=== PATIENT | male | born 1955 | race Caucasian/White ===

== ENCOUNTER → 2017-01-15 | Outpatient (CLI) | payer OTHER ==
[~2017-01-15] MED LIST: ASPIRIN 81MG TA81 MG PO; ASPIRIN81 MG PO; ATROVENT15 ML NS; CLINDAMYCIN HC300 MG PO; DIOVAN160 MG PO; EDARBI40 MG PO; FLOMAX0.4 MG PO; GLYBURIDE AND M1 TA1 PO; GLYBURIDE AND M1 TA2 PO; JANUMET XR 10001 TE1 PO; JENTADUETO1 TAB PO; KEFLEX 500MG.500 MG PO; LIPITOR40 MG PO; LISINOPRIL 10MG10 MG PO; LIVALO2 MG PO; LOPRESSOR 25MG.25 MG PO; NATURAL FISH1200 MG PO; NITROSTAT0.4 MG SL; PERFOROMIS20 MCG/2 M IH; RANITIDINE HCL150 MG PO; SINGULAIR10 MG PO; VANCOMYCIN HC1000 MG IJ; VIMOVO 20 MG-501 TCP PO; VITAMIN C1000 M1 PO
--- NOTE | 2017-01-15 11:59 | RADIOLOGY REPORT PS360 ---
CHEST(2 VIEWS-NOT PORTABLE) ORDERING PHYSICIAN : Len Hopson MD PATIENT AGE: 61 years GENDER: Male INDICATION: COUGH Cough congestion. Nonproductive cough 6 weeks TECHNIQUE: 2 view chest COMPARISON: Portable upright chest 05/25/2013 FINDINGS Nothing definitely acute on today's chest film. But no focal pneumonia. Azygos lobe noted. Heart zayda and mediastinal structures satisfactory. Chest wall T-spine unremarkable. IMPRESSION: Lungs clear with nothing definitely acute Stable chest
== END ==
LOC: RAD 09:56
DX: R05 Cough (principal); I49.9 Cardiac arrhythmia, unspecified

== ENCOUNTER → 2017-01-23 | Outpatient (CLI) | payer OTHER ==
--- NOTE | 2017-01-23 16:01 | RADIOLOGY REPORT PS360 ---
PROCEDURE: 2-D M-mode and color Doppler study INDICATIONS FOR THE TEST: Chest pain COPD Heart Murmur Tobacco Smoking Palpitations Fatigue Syncope Edema HypertensionXDiabetes MellitusX Rheumatic Fever SOB OLSON Obesity HyperlipidemiaX Family History HD Additional History AF,CAD PATIENT INFORMATION HEIGHT: 74 WEIGHT:205 GENDER: Male B/P:120/70 2-D/M-MODE INTERPRETATION: 2-D MEASUREMENTS OBSERVED VALUES IN CMS Right Ventricular Dimension (RVDd) 2.8 Interventricular Septum (Thickness)(IVsd) 1.1 Left Ventricular Internal Dimensions(LVIDd) 5.3 Left Ventricular Posterior Wall (Thickness)(LVPWd) 1.2 Aortic Root 3.4 Aortic Cusp Separation 2.1 Left Atrial Dimensions (LAD) 4.0 2D 1. Left atrium is mildly enlarged, left ventricle is normal size, there is mild concentric left ventricular hypertrophy present, visually estimated ejection fraction 55% with no obvious regional wall motion abnormality. 2. The right atrium is normal size, right ventricle is mildly enlarged with normal contractility. 3. The aortic valve is minimally thickened and fibrosed consistent with aortic sclerosis, there is no aortic stenosis. 4. The mitral and tricuspid valve is structurally normal. 5. The pulmonic valve is not well visualized. 6. No significant pericardial effusion noted. DOPPLER INTERROGATION: Doppler interrogation of the aortic mitral and tricuspid valve reveals presence of mild mitral and tricuspid regurgitation, tricuspid regurgitant jet velocity insufficient for calculation of the right ventricular systolic pressure, grade 1 diastolic dysfunction seen without tissue Doppler evidence of raised left atrial pressure. CONCLUSION: 1. Mildly enlarged left atrium normal left ventricular size, mild concentric left ventricular hypertrophy, visually estimated to fraction 55% with no obvious regional wall motion abnormality, grade 1 diastolic dysfunction seen without tissue Doppler evidence of raised left atrial pressure. 2. Mild mitral and tricuspid regurgitation,tricuspid regurgitant jet velocity insufficient for calculation of the right ventricular systolic pressure. 3. No significant pericardial effusion noted.
== END ==
LOC: RT 01-22 08:00
DX: I48.91 Unspecified atrial fibrillation (principal)

== ENCOUNTER 2017-06-15 07:44 | Inpatient (IN) | payer OTHER ==
[~2017-06-15] VITALS: Ht 185.4 cm; Wt 87.3 kg
[2017-06-15] VITALS (43 sets, daily range): BP systolic 109–147; BP diastolic 54–85
[~2017-06-15 07:44] MED LIST changes: +C-10001000 MG PO; +KEFLEX500 M1 PO; -VITAMIN C1000 M1 PO
[2017-06-15] MEDS ORDERED: ALLOPURINOL300 M1 PO (07:55)
[2017-06-15] MEDS ORDERED: DILTIAZEM 180180 MG PO (07:55)
[2017-06-15] MEDS ORDERED: GLIPIZIDE 5MG TA5 MG PO (07:56)
[2017-06-15] MEDS ORDERED: FENOFIBRATE145 MG PO (07:57)
[2017-06-15] MEDS ORDERED: INVOKAMET1 TAB PO (07:57)
[2017-06-15] MEDS ORDERED: LIVALO4 MG PO (07:58)
[2017-06-15] MEDS ORDERED: LOSARTAN POTAS100 MG PO (07:58)
[2017-06-15] MEDS ORDERED: NAPROXEN500 M1 PO (07:59)
[2017-06-15] MEDS ORDERED: XARELTO20 MG PO (07:59)
[2017-06-15] MEDS ORDERED: OMEPRAZOLE20 MG PO (07:59)
[2017-06-15] MEDS ORDERED: BRILINTA90 M1 PO (08:00)
[2017-06-15 08:27] LABS: LYMPH % 20.6 % (10-50)
[2017-06-15 08:33] LABS: HEMOGLOBIN 6.4 g/dL (14.1-18.0)
[2017-06-15 08:33] LABS: STOOL OCCULT BLOOD POSITIVE (NEG)
[2017-06-15 08:46] LABS: BUN 65 mg/dL (7-18)
[2017-06-15 08:47] LABS: GFR (ESTIMATED) 47 ML/MIN (>60)
--- NOTE | 2017-06-15 08:52 | Emergency Room Report ---
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 PT DENIES CP. 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 N Clinical Suspician of Infection? N Mental Status: 1 - Regular (Normal Baseline) Sepsis Risk:Low Sepsis Risk Have you (or family members/close friends) recently traveled outside the [place]? N If Yes, where/when: Have you had exposure to infectious disease within the past month? TB? Other? Specify: 61 years old white male with multiple medical problems including diabetes and coronary artery disease. He underwent stenting in February 2017, he has been on aspirin berlinta and xalerto. After starting xalerto he underwent black stool and aspirin was stopped. It hasn't yesterday 06/14/17 at noon, he started feeling dizzy upon standing and almost passed out twice. He denies trauma. In the afternoon he noted black stool once. no black stool today. He was brought by the for evaluation, his vitals are stable. He denies abdominal pain vomiting or diarrhea. He denies chest pain palpitations shortness of air. He denies bleeding per orifices, hematemesis and coffee ground material. Source patient, RN notes reviewed, family Exam Limitations no limitations ALLERGIES Coded Allergies: No Known Allergies (03/06/17) Home Medications Reported Medications Azilsartan Medoxomil (Edarbi) 20 MG PO DAILY Allopurinol 150 MG FT DAILY #30 DILTIAZEM HCL (Tiazac) 180 MG PO DAILY Glipizide (Glipizide 5MG) 5 MG PO DAILY FENOFIBRATE NANOCRYSTALLIZED (Fenofibrate) 145 MG PO DAILY #30 CANAGLIFLOZIN/METFORMIN HCL (Invokamet 150-1,000 MG Tablet) 1 TAB PO BID #60 Pitavastatin Calcium (Livalo) 4 MG PO DAILY #30 Losartan Potassium (Losartan 100MG) 50 MG PO DAILY #30 Naproxen 500 MG PO DAILY #60 Omeprazole (Omeprazole 20MG) 20 MG PO DAILY #60 Rivaroxaban (Xarelto) 20 MG PO DAILY #30 Ticagrelor (Brilinta) 90 MG PO DAILY #60 OMEGA-3S/DHA/EPA/FISH OIL (Fish Oil 1,200 MG Softgel) 1,200 MG PO TID Ascorbic Acid (Vitamin C) 1,000 MG PO DAILY History Medical History General Angina: No DE: Yes Hypertension? Yes Hyperlipidemia? Yes CHF? No COPD? No Asthma? No Hernia? No CVA? No Seizures? No Diabetes? Yes Insulin Dependent: No Insulin Pump: No Home FSBS? No UTI? No Stones? No GB Disease: No Hepatitis? No Cataracts? No Glaucoma? No MRSA? No TB? No Cancer? No More? No Immunization Hx DT/Tetanus 1-4 YRS Flu Refused Pneumonia Refuses Surgical Hx Previous Surgery?N HEART STENT Family History Family Hx Diabetes Yes CAD No Hypertension Yes Hyperlipidemia Yes Cancer No TB No Social History Smoking Hx Smoker: Never Smoker Tobacco: No Alcohol Alcohol: Yes Review of Systems All Other Systems Reviewed and Negative Constitutional no symptoms reported, see HPI, weakness Eyes no symptoms reported ENT no symptoms reported. Respiratory no symptoms reported Cardiovascular no symptoms reported Gastrointestinal see HPI Genitourinary no symptoms reported. Musculoskeletal no symptoms reported Skin no symptoms reported Psychiatric/Neurological no symptoms reported Physical Exam Vital Signs Vital Signs Date Time Temp Pulse Resp B/P Pulse O2 O2 Flow FiO2 Ox Delivery Rate 06/15 0856 95 106/58 08 0856 81 127/66 08/ 0856 81 117/66 06/15 0844 81 20 127/66 94 06/15 0747 97.8 85 20 134/61 100 - WBC >12,000 or <4,000 or 10% bands? 2 or more SIRS Criteria Met? B/P:127/66 MAP:85 Creatinine >2.0? UA output<0.5ml/kg/hr for 2 hrs? Platelet count >100,000? Lactate >2.0mmol/1? INR >1.2 or PTT > than 60 sec? Evidence of Organ Dysfunction? Provider documented clinical suspician of infection? N Sepsis Criteria Count: 1 Sepsis Risk: Low Sepsis Risk General Appearance normal appearance, WD/WN, no apparent distress Eye Exam - bilateral eye normal exam, bilateral eye PERRL, bilateral eye EOMI Ear, Nose, Throat hearing grossly normal, normal ENT inspection Neck normal inspection, non-tender, supple, full range of motion Respiratory Status Yes: trachea midline, chest symmetrical, non tender chest. No: respiratory distress. Lung Sounds bilateral: normal breath sounds, lungs clear. Cardiovascular normal exam, regular rate/rhythm, no peripheral edema, no gallop, no JVD, no murmur, no rub, normal peripheral pulses Peripheral Pulses Pulses normal Yes Gastrointestinal normal bowel sounds, normal exam, non tender, soft, no organomegaly Back normal inspection, no CVA tenderness, no vertebral tenderness Extremities non-tender, normal range of motion, normal inspection Rectal good tone, painless exam, no masses , scant black stool. Nurse present during exam? 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 No Results/Orders Laboratory Tests 06/15/17 0830: Stool Occult Blood POSITIVE 06/15/17 0814: Sodium 138, Potassium 4.0, Chloride 105, Carbon Dioxide 21 L, BUN 65 H, Creatinine 1.5 H, Estimated Creat Clear 60, Estimated GFR (MDRD) 47, Glucose 281 H, Calcium 8.5, Total Bilirubin 0.2, AST 18, ALT 29, Alkaline Phosphatase 31 L, Creatine Kinase 98, CK-MB (CK-2) Rel Index 2.8, CK and CKMB Interp 2.7, Troponin I < 0.02, Total Protein 6.3 L, Albumin 3.3 L, Globulin 3.0, Albumin/ Globulin Ratio 1.1, WBC 4.8, RBC 2.60 L, Hgb 6.4 *L, Hct 21.2 *L, MCV 81.4 L, RDW 17.8 H, Plt Count 270, MPV 7.6, Gran % 74.0, Gran # 3.5, Lymphocytes % 20.6 , Monocytes % 3.6, Eosinophils % 1.2, Basophils % 0.5, Lymphocytes # 1.0, Monocytes # 0.2, Eosinophils # 0.1, Basophils # 0.0, PUBS MCHC 30.1 L, MCH 24.5 L Current Medication Orders Sig/Suraj Start time Last Medication Dose Route Stop Time Status Admin Famotidine 0 .STK-MED ONE 06/15 0846 DC IV Famotidine 20 MG ONCE ONE 06/15 0845 DC 06/15 IV 06/15 0846 0848 Pantoprazole Sodium 40 MG ONCE ONE 06/15 0845 DC 06/15 IV 06/15 0846 0848 Pantoprazole Sodium 0 .STK-MED ONE 06/15 0845 DC IV Sodium Chloride 1,000 ML .Q1H1M 06/15 0845 AC 06/15 IV 06/15 0945 0849 Sodium Chloride 10 ML PRN PRN 06/15 0845 AC IV 06/16 0840 Sodium Chloride 1,000 ML .Q1H1M 06/15 0845 AC 06/15 IV 06/15 0945 0849 Sodium Chloride 10 ML PRN PRN 06/15 0845 AC IV 06/16 0840 Sodium Chloride 10 ML ONCE ONE 06/15 0845 DC IV 06/15 0846 Sodium Chloride 8 ML ONCE ONE 06/15 0845 DC 06/15 IV 06/15 0846 0849 Sodium Chloride 2,000 ML .STK-MED ONE 06/15 0838 DC IV Sodium Chloride 10 ML PRN PRN 06/15 0815 AC IV 06/16 0802 Orders Procedure Date/time Status Decision to admit 06/15 0843 Active TYPE FOR CROSSMATCH 06/15 0841 Active ABD ACUTE(MUL VIEWS) 06/15 0822 Active ORTHOSTATIC B/P 06/15 0822 Active STOOL OCCULT BLOOD 06/15 0822 Complete ELECTROCARDIOGRAM REQUEST 06/15 08 Active CHEST(2 VIEWS-NOT PORTABLE) 06/15 0803 Active IV SALINE LOCK 06/15 08 Active SOFTWARE DEVELOPER MANAGER 06/15 0803 Active CBC WITH AUTO DIFF 06/15 0803 Complete CARDIAC ENZYMES 06/15 08 Complete CHEM 12 PROFILE 06/15 0803 Complete 12 LEAD EKG-GRACE (INITIAL) 06/15 0800 Active CM/EKG CM/EKG EKG rate, NSR, rhythm, no ectopy Comments Normal sinus rhythm 82/m Q-wave in the inferior leads baseline artifact no acute finding XRAY/CT/US XRAY/CT/US XRAY chest, abdomen XR interpretation by reviewed by me Xray Results no acute finding Departure Departure Time of Disposition 0849 Disposition Still a Patient Clinical Impression Primary Impression: Upper GI bleed Secondary Impressions: CAD (coronary artery disease), Coagulopathy, Diabetes 1.5 , managed as type 2 Condition STABLE Referrals Len Hopson MD (Family) Additional Instructions I discussed with the patient and his history examination and laboratory findings. It looks he has been having an upper gastrointestinal bleed for the past few months as. He is hemodynamically stable. 4 units of blood were ordered, the patient has no objection for blood transfusion. I informed his accountant Dr. Molina about his admission. i contacted dr. Hopson who agreed to admit and recommended blood transfusion. The patient wasa admitted in a hemodynamically stable conditon. Dr. Salazar Discharge Counseling Counseled pt/family regarding diagnosis, R/B of controlled subst., medications/RX, follow up needs ED Critical Care Critical Care No If Critical Care minutes are documented, the time involved in the performance of seperately reportable procedures was not counted toward critical care time documented. I directly delivered medical care to this critically ill and/or injured patient. Timely evaluation and treatment was necessary to address the significant organ system(s) dysfunction present in this patient. at 0915
[2017-06-15 10:03] LABS: ABO BLOOD TYPE A; RH BLOOD TYPE POSITIVE
--- NOTE | 2017-06-15 10:38 | HISTORY AND PHYSICAL REPORT ---
History and Physical ([facility]) Date of admission: 06/15/17 Chief complaint: Dizziness and Fatigue History: History of Present Illness: Mr. Ferreira is a 61yo WM with a hx of DM, HTN, CAD with WI and stents placed 2016, GERD, and gout who presented to the [facility] ED this morning with some dizziness and fatigue. According to the patient and his , he started experiencing some dizziness and fatigue yesterday morning while working outside. His symptoms progressed throughout the day to include weakness with any physical exertion. Pt reports that he also experienced one episode of dark stool yesterday. He notes that he was seen in the office of [facility] in February of this year for melena while taking Brilinta, ASA, Xarelto, and Naproxen. He was instructed to stop ASA and naproxen at that time and had no further recurrence of melena until yesterday. Pt and describe his symptoms overnight as much worse, which prompted ED visit. Upon arrival, pt H&H was found to be critically low with a positive stool occult blood. His EKG showed NSR with baseline artifact and no acute finding. Xray of abdomen and chest revealed no acute finding. The case was discussed with Dr. Hopson and the patient was admitted for transfusion and surgery consult. Past Medical History: Medical History: CAD? Yes Angina: No WI: Yes Hypertension? Yes Hyperlipidemia? Yes CHF? No DVT? No PE? No COPD? No Asthma? No Anemia? No GERD? Yes Gastric ulcers? No GI Bleed? No Hernia? No Thyroid Problems? No Hypothyroidism? No CVA? No Seizures? No Diabetes? Yes Insulin Dependent: No Insulin Pump: No Home FSBS? No Renal Insuffiency? No UTI? No Stones? No BPH? No GB Disease: No Nephritic Syndrome? No Asplenia? No Hepatitis? No Sickle Cell Disease? No Arthritis? No Migraines? No Cataracts? No Glaucoma? No MRSA? Yes HIV? No TB? No Anxiety? No Depression? No Cancer? No More? No Surgical history: Previous Surgery 1. HEART STENT x 2 - 02/14/17 - Dr. Molina Medications: Reported Medications Omeprazole (Omeprazole 20MG) 20 MG PO BID #60 Ticagrelor (Brilinta) 90 MG PO BID #60 TAB Allopurinol 150 MG FT DAILY #30 DILTIAZEM HCL (Tiazac) 180 MG PO DAILY Glipizide (Glipizide 5MG) 5 MG PO DAILY FENOFIBRATE NANOCRYSTALLIZED (Fenofibrate) 145 MG PO DAILY #30 CANAGLIFLOZIN/METFORMIN HCL (Invokamet 150-1,000 MG Tablet) 1 TAB PO BID #60 Pitavastatin Calcium (Livalo) 4 MG PO DAILY #30 Losartan Potassium (Losartan 100MG) 50 MG PO DAILY #30 Naproxen 500 MG PO DAILY #60 Rivaroxaban (Xarelto) 20 MG PO DAILY #30 OMEGA-3S/DHA/EPA/FISH OIL (Fish Oil 1,200 MG Softgel) 1,200 MG PO TID Ascorbic Acid (Vitamin C) 1,000 MG PO DAILY Discontinued Reported Medications Azilsartan Medoxomil (Edarbi) 20 MG PO DAILY Allergies: Coded Allergies: No Known Allergies (03/06/17) Family History: Family history: Postive for: DM, cancer. Social History: Smoking Hx Tobacco: No Smoker: Former Smoker (quit 1994) Type: Cigarettes Packs/day: < 1 Pack (20 pack year history) Are you exposed to second hand No Alcohol: Alcohol: Yes Hx of Drug Use: Drug Use? No Patien't marital status is: Patient's support system is: good Recent travel: none Review of Systems: Patient unresponsive? No Constitutional Positive for: fatigue, lethargy, weak, recent weight loss (20# intentional weight loss). No: chills. ENT No: ear ache, nasal congestion, sinus problems, sore throat. Cardiovascular Positive for: OLSON. No: PND, chest pain, edema, orthopnea, palpitations. Respiratory Positive for: dyspnea on exertion. No: PND, shortness of air, non-productive, pleuritic pain, productive cough (sputum), wheezing. GI Positive for: GERD, melena. No: abdominal pain, anorexia, constipation, dysphagia, hematemeis, hematochezia, nausea, rectal pain, vomitting. (male) No: frequency, hematuria. Skin No: diaphoresis, ecchymosis, rash. Neurological Positive for: dizziness, light headed, weakness. No: change in LOC, confusion, gait problem, headache, numbness, slurred speech, syncope. Immune/allergy No: itching. Eyes No: blurry vision, vision loss. Musculoskeletal No: extremity pain, extremity swelling, joint pain, joint swelling. Heme No: bleeding, bruising. Endocrine Positive for: heat. No: cold intolerance, polydipsia. Psychiatric No: confused, delusional, change in mental status. Physical Exam: Vital signs: 1ST Vital Signs Result Date Time Pulse Ox 100 06/15 747 B/P 134/61 06/15 747 Temp 97.8 06/15 747 Pulse 85 06/15 747 Resp 20 06/15 747 O2 Delivery ROOM AIR 06/15 1018 Exam: General appearance: alert, awake, no acute distress Eyes: anicteric, conjunctiva clear, PERRLA ENT: mucous membranes moist, pharynx normal, nares patent Neck: non-tender, supple, no LAD Cardiovascular: regular rate & rhythm, normal peripheral pulses Respiratory: CTAB A&P, good air movement ABD: non-distended, no rebound, soft, no tenderness, no guarding, no organomegaly, no palpable mass, bowel sounds present Extremities: moves all, no peripheral edema, no calf tenderness Skin: dry, intact, warm Neuro: alert, oriented, no focal deficit Lab data: Labs: Laboratory Tests 06/15/17 0900: Antibody Screen NEGATIVE, Miscellaneous Test POSITIVE 06/15/17 0830: Stool Occult Blood POSITIVE 06/15/17 0814: Sodium 138, Potassium 4.0, Chloride 105, Carbon Dioxide 21 L, BUN 65 H, Creatinine 1.5 H, Estimated Creat Clear 60, Estimated GFR (MDRD) 47, Glucose 281 H, Calcium 8.5, Total Bilirubin 0.2, AST 18, ALT 29, Alkaline Phosphatase 31 L, Creatine Kinase 98, CK-MB (CK-2) Rel Index 2.8, CK and CKMB Interp 2.7, Troponin I < 0.02, Total Protein 6.3 L, Albumin 3.3 L, Globulin 3.0, Albumin/ Globulin Ratio 1.1, WBC 4.8, RBC 2.60 L, Hgb 6.4 *L, Hct 21.2 *L, MCV 81.4 L, RDW 17.8 H, Plt Count 270, MPV 7.6, Gran % 74.0, Gran # 3.5, Lymphocytes % 20.6 , Monocytes % 3.6, Eosinophils % 1.2, Basophils % 0.5, Lymphocytes # 1.0, Monocytes # 0.2, Eosinophils # 0.1, Basophils # 0.0, PUBS MCHC 30.1 L, MCH 24.5 L Diagnosis(es): 1. Upper GI bleed Status: Acute 2. Anemia Status: Acute 3. Hypertension Status: Chronic 4. Diabetes 1.5, managed as type 2 Status: Chronic 5. CAD (coronary artery disease) Status: Chronic 6. GERD (gastroesophageal reflux disease) Status: Chronic Plan: Pt will be admitted and started on IVF and PPI with orders for transfusion of 4 units PRBC's. Surgery has been consulted, await input. (KEIKO CASTRO APRN) Diagnosis(es): 1. Upper GI bleed Status: Acute 2. Anemia Status: Acute 3. Hypertension Status: Chronic 4. CAD (coronary artery disease) Status: Chronic 5. GERD (gastroesophageal reflux disease) Status: Chronic 6. DM2 (diabetes mellitus, type 2) Status: Chronic Plan: Patient seen and agree with above note. Dr. Souza has been consulted for further evaluation of GI bleed. Transfusion ordered. Dr. Garcia will follow patient in my absence. (Len Hopson MD) at 1037 at 1251
--- NOTE | 2017-06-15 12:31 | CONSULT NOTE ---
Standard Demographics Patient Demo Date of Consultation: 06/15/17 Referring Provider: Len Hopson MD Reason for Consultation: Upper Gastrointestinal Bleed Allergies: Coded Allergies: No Known Allergies (03/06/17) History of Present Illness Chief Complaint: Weakness, black stool History of Present Illness: Patient is a 61-year-old white male with diabetes, hypertension, coronary disease with previous myocardial infarction. He had undergone coronary angioplasty with stent placement on 02/14/[address] Molina. He had previously been on aspirin, Naprosyn, Xarelto and Brilinta. Currently he is on the latter 2 medications for presumed drug eluting stents. He had a normal bowel movement 2 days ago. However, yesterday morning he developed very dark black stool. He had an additional bowel movement consistent with melena yesterday afternoon and then this morning. Yesterday he was outside in felt dizzy and weak. He ultimately presented to the emergency department this morning and evaluation revealed appreciable anemia with a hemoglobin of 6 and hematocrit of 21 percent. He was admitted for inpatient management. Patient states that he has been on omeprazole. Denies any known history of ulcer disease. Past Medical History Reports: CAD, hypertension, diabetes mellitus, GERD. Denies: peptic ulcer disease. Surgical History Previous Surgery?N HEART STENT Allergies Coded Allergies: No Known Allergies (03/06/17) Medications: Reported Medications OMEGA-3S/DHA/EPA/FISH OIL (Fish Oil 1,200 MG Softgel) 1,200 MG PO TID Ascorbic Acid (C-1000) 1,000 MG PO DAILY Allopurinol 150 MG PO DAILY #30 TAB Ticagrelor (Brilinta) 90 MG PO BID #60 TAB DILTIAZEM HCL (Tiazac) 180 MG PO DAILY Glipizide (Glipizide 5MG) 5 MG PO DAILY FENOFIBRATE NANOCRYSTALLIZED (Fenofibrate) 145 MG PO DAILY #30 CANAGLIFLOZIN/METFORMIN HCL (Invokamet 150-1,000 MG Tablet) 1 TAB PO BID #60 Pitavastatin Calcium (Livalo) 4 MG PO DAILY #30 Losartan Potassium (Losartan 100MG) 50 MG PO DAILY #30 Smoking Hx Tobacco: No Smoker: Former Smoker (quit 1994) Type: Cigarettes Packs/day: < 1 Pack (20 pack year history) Are you/the child exposed to second-hand smoke: No Alcohol Alcohol: Yes How much do you drink 1-2 Drinks Per Day For how long 2-5 Years When was your last drink 24-48 Hours Ago Hx of Drug Use Drug Use? No Review of Systems Constitutional Positive for: fatigue, lethargy, malaise, weak. Skin Positive for: bruising. Immune/allergy No: anaphalaxis. Eyes No: vision loss. ENT No: hearing loss. Respiratory Positive for: dyspnea on exertion. No: shortness of air, hemoptysis. Cardiovascular Positive for: OLSON. No: chest pain. GI Positive for: GERD, melena. No: abdomen. (male) No: flank pain. Musculoskeletal No: extremity swelling. Heme No: bruising. Endocrine Positive for: dyspnea. Neurological Positive for: dizziness, light headed, weakness. Physical Exam Exam General appearance no acute distress, alert Respiratory clear to auscultation Cardiovascular normal heart sounds Plan Plan: He has findings consistent with upper gastrointestinal blood loss. Hemoglobin is 6.4 and baseline is approximately 14. He has elevated BUN. Agree with transfusion which is pending. Tentatively plan for diagnostic upper endoscopy likely later this afternoon after some transfusion. at 1414 Plan Plan: He has findings consistent with upper gastrointestinal blood loss. Hemoglobin is 6.4 and baseline is approximately 14. He has elevated BUN. Agree with transfusion which is pending. Tentatively plan for diagnostic upper endoscopy likely later this afternoon after some transfusion. at 1230
--- NOTE | 2017-06-15 12:53 | RADIOLOGY REPORT PS360 ---
CHEST(2 VIEWS-NOT PORTABLE) COMPARISON: PA and lateral chest 01/15/2017 HISTORY: Is in the TECHNIQUE: PA and lateral chest FINDINGS: The lung mccurdy are well expanded and appear clear of infiltrate. The cardiac silhouette and vascularity are normal. Again noted is azygos lobe right apex a normal variation. The bony thorax is normal. IMPRESSION: Nonacute chest findings
--- NOTE | 2017-06-15 12:54 | RADIOLOGY REPORT PS360 ---
ABDOMEN-FLAT UPRIGHT COMPARISON: None HISTORY: Dizziness, black and tarry stools TECHNIQUE: KUB and upright abdomen FINDINGS: There is moderate scattered stool in ascending and descending colon. There is no significant small bowel gas. There are no abnormal soft tissue shadows and there is no free air. The bony pelvis appears intact, there is mild sclerosis of the SI joints and symphysis pubis. IMPRESSION: Essentially nondiagnostic abdomen
[2017-06-15 13:44] LABS: ANTIHUMAN GLOB CROSSMATCH COMPAT
[2017-06-15 13:53] LABS: ANTIHUMAN GLOB CROSSMATCH COMPAT
--- NOTE | 2017-06-15 16:20 | Operative Note ---
Endoscopy Report Date: 06/15/17 Preoperative diagnosis: Upper gastrointestinal bleeding Procedure Type of procedure: Esophagogastroduodenoscopy Indications: 61-year-old white male with previous coronary angioplasty with stenting on blood thinners who presented to the emergency department this morning with a 24-hour history of several episodes of melena and weakness with near syncopal episode. He presented to the emergency department this morning and was found to have appreciable anemia with hemoglobin of 6 and hematocrit of 21 percent. Baseline hemoglobin is 14. He was admitted for inpatient management and surgical consultation. Given the findings consistent with appreciable upper gastrointestinal blood loss plan was made for upper endoscopy for diagnostic and potential therapeutic purposes. Consent was obtained and patient was taken to endoscopy procedure room. He was positioned in a lateral decubitus position. Adequate intravenous sedation was achieved with anesthesia titration of propofol. Olympus endoscope was inserted via the oropharynx. Esophagus appeared normal. Stomach was cannulated and insufflated. Retroflexion revealed no evidence of any significant hiatal hernia. Gastric lumen was relatively unremarkable other than findings suggestive of minor gastritis. Pylorus was traversed. Within the duodenal bulb there appeared to be a punctate area consistent with a granulation tissue which would be suggestive of either Dielafoy type lesion or AVM. This had shown some recent bleeding and minor oozing. Irrigation was performed and there was no evidence of any ongoing bleeding. The endoscope was able to be advanced beyond this into the distal duodenum which appeared relatively unremarkable. Findings 1. duodenal Dielafoy lesion Follow-Up Follow-Up: Continue proton pump inhibitors. Transfused to appropriate level. Once stable may be able to discharge in 48-72 hours. Likely would recommend repeat upper endoscopy as an outpatient in several weeks. at 1620
--- NOTE | 2017-06-15 16:34 | Anesthesia Record ---
Anesthesia Record Part I Total IV fluids: 400 EBL (ml): 0 Urine Output: 0 B/P: 109/53 % SaO2: 95 Pulse: 80 Resps: 16 Temp: 99.1 Patient is: Drowsy, Stable Stable to PACU at: 1612 at 1634
--- NOTE | 2017-06-15 16:34 | Anesthesia Record ---
Anesthesia Record Part II Discharge time: 161 Destination: Second Floor PACU nurse assessment review? Yes Patient is: Stable Anesthesia complications? No at 1637
[2017-06-15 18:00] LABS: HEMOGLOBIN 7.4 g/dL (14.1-18.0)
[2017-06-15 18:20] LABS: LYMPH # 1.4 K/mm3 (0.7-4.5); LYMPH % 31.1 % (10-50)
[2017-06-15 18:21] LABS: HEMOGLOBIN 7.4 g/dL (14.1-18.0)
[2017-06-15 19:22] LABS: ANTIHUMAN GLOB CROSSMATCH COMPAT
[2017-06-15 20:06] LABS: ANTIHUMAN GLOB CROSSMATCH COMPAT
[2017-06-15 23:13] LABS: HEMOGLOBIN 8.6 g/dL (14.1-18.0)
[2017-06-16] VITALS (15 sets, daily range): BP systolic 122–163; BP diastolic 58–104
--- OUTSIDE RECORDS SUMMARY | 2017-06-16 05:14 | External Medical Summary Rpt ---
Author Author , NATHANIEL PETERSON Address Unknown Phone [email or web address] Purpose Continuity of Care Document - 06-15-2017 through 2016 Results Labs Lab Lab Date Result Refere Interp Status Commen Order Detail nces retati t Range on Blood product special preparation [Type] (06-15-2017 20:00) Blood BLOOD complet product 017 UNIT ed 20:00 RELEASE special prepara tion [Type] Blood product special preparation [Type] (06-15-2017 18:16) Blood BLOOD complet product 017 UNIT ed 18:16 RELEASE special prepara tion [Type] Blood product special preparation [Type] (06-15-2017 14:32) Blood BLOOD complet product 017 UNIT ed 14:32 RELEASE special prepara tion [Type] Blood product special preparation [Type] (06-15-2017 13:05) Blood BLOOD complet product 017 UNIT ed 13:05 RELEASE special prepara tion [Type] Blood type & Crossmatch panel in Blood (06-15-2017 09:00) Major COMPAT complet crossma 017 ed tch 09:00 [interp retatio n] Major COMPAT complet crossma 017 ed tch 09:00 [interp retatio n] by Immedia te spin Blood type & Crossmatch panel in Blood (06-15-2017 09:00) Blood NEGATIV NEGATIV complet group 017 E E ed antibod 09:00 y screen [Presen ce] in Serum or Plasma Rh POSITIV complet [Type] 017 E ed in 09:00 Blood ABO A complet group 017 ed [Type] 09:00 in Blood Hemoglobin.gastrointestinal [Presence] in Stool (06-15-2017 08:30) Hemoglo POSITIV NEG complet bin.gas 017 E ed trointe 08:30 stinal [Presen ce] in Stool --1st specime n
--- OUTSIDE RECORDS SUMMARY | 2017-06-16 05:14 | External Medical Summary Rpt ---
Author Author , NATHANIEL PETERSON Address Unknown Phone [email or web address] Purpose Continuity of Care Document - 06-15-2017 [...]
--- OUTSIDE RECORDS SUMMARY | 2017-06-16 05:14 | External Medical Summary Rpt ---
Demographics Preferred Language Spanish Marital Status Unknown Episcopalian Affiliation Unknown Race Unknown Ethnic Group Unknown Author Author , NATHANIEL PETERSON Address Unknown Phone Immunization Unable to retrieve immunization data due to connection failure with Immunization Registry. Please try again later.
--- OUTSIDE RECORDS SUMMARY | 2017-06-16 05:14 | External Medical Summary Rpt ---
Demographics Preferred Language Jordanian Marital Status Unknown Lutheran Affiliation Unknown Race Unknown Ethnic Group Unknown Author Author , NATHANIEL PETERSON Address Unknown Phone Immunization Unable to retrieve immunization data due to connection failure with Immunization Registry. Please try again later.
--- OUTSIDE RECORDS SUMMARY | 2017-06-16 05:14 | External Medical Summary Rpt ---
Author Author NICHOLAS Amaro, NOAHNIKHIL [employer] Address Unknown Phone Unavailable Results Blood product special preparation [Type] Observa Value Referen Units Interpr Notes Date tion ce etation Range Blood BLOOD No No No BLOOD Jun 4 product UNIT informa informa informa UNIT # 2017 RELEASE tion in in in : W0382 8:00 PM special source source source 17 data data data [id number] prepara RELEASE tion D [Type] 7 2000Spa rks,Maicol nA POSITIV E Blood product special preparation [Type] Observa Value Referen Units Interpr Notes Date ti ce etation Range Blood BLOOD No No No BLOOD Jun 4 product UNIT informa informa informa UNIT # 2017 RELEASE tion in in in : W0382 6:16 PM special source source source 17 data data data [id number] prepara RELEASE tion D [Type] 7 1816Spa rks,Maicol nA POSITIV E Basic metabolic panel in Blood Observa Value Referen Units Interpr Notes Date ti ce etation Range Urea 7 - 18 mg/dL High No Jun 15 nitrogen informati 2017 5:40 [Mass/vol on in PM ume] in source Serum or data Plasma Calcium 8.5 - mg/dL Low No Jun 15 [Mass/vol 10.1 informati 2017 5:40 ume] in on in PM Serum or source Plasma data Chloride 98 - 107 mmoL/L High No Jun 15 [Moles/vo informati 2017 5:40 lume] in on in PM Serum or source Plasma data Carbon 21.0 - mmoL/L Low No Jun 15 dioxide, 32.0 informati 2017 5:40 total on in PM [Moles/vo source lume] in data Serum or Plasma Creatinin 0.70 - mg/dL Normal No Jun 4 e 1.30 informati 2017 5:40 [Mass/vol on in PM ume] in source Serum or data Plasma Creatinin 50 - 200 ML/MIN Normal No Jun 15 e renal informati 2017 5:40 clearance on in PM source predicted data by Cockcroft -Gault formula Estimated >60 ML/MIN No REFERENCE Jun 15 informati RANGE: 2016 5:40 glomerula on in >60 PM r source ML/MIN/1. filtratio data 73 SQUARE n rate METERSIf (GF this patient is -A merican, then multiply theresult by 1.210. Glucose 74 - 106 mg/dL High No Jun 15 [Mass/vol 2016 5:40 ume] in on in PM Serum or source Plasma data Potassium 3.5 - 5.1 mmoL/L Normal No Jun 15 inform2016 5:40 [Moles/vo on in PM lume] in source Serum or data Plasma Sodium 136 - 145 mmoL/L Normal No Jun 15 [Moles/vo 2016 5:40 lume] in on in PM Serum or source Plasma data CBC W Auto Differential panel in Blood Observa Value Referen Units Interpr Notes Date tion ce etation Range Basophils 0 - 0.2 K/MM3 Normal No Jun 152016 5:40 [#/volume on in PM ] in source Blood by data Automated count Basophils 0.1 - 2.0 % Normal No Jun 15 informati 2016 5:40 leukocyte on in PM s in source Blood by data Automated count Eosinophi 0.0 - 0.4 K/mm3 Normal No Jun 15 ls inform2016 5:40 [#/volume on in PM ] in source Blood by data Automated count Eosinophi 0.1 - % Normal No Jun 15 ls/100 12.0 inform2016 5:40 leukocyte on in PM s in source Blood by data Automated count Granulocy 1.3 - 8.0 K/mm3 Normal No Jun 15 amber informati 2016 5:40 [#/volume on in PM ] in source Blood by data Automated count Granulocy 37.0 - % Normal No Jun 15 amber/100 80.0 informati 2016 5:40 leukocyte on in PM s in source Blood by data Automated count Hematocri 42.0 - % Low alert Jun 15 t [Volume 52.0 2016 5:40 CRITICAL PM Fraction] RESULTS of Blood [facility] [place] [facility] [place] 1821 Elbert,Rich fernie Hemoglobi 14.1 - g/dL Low alert Jun 15 n 18.0 2016 5:40 [Mass/vol CRITICAL PM ume] in RESULTS Blood [place] [facility] [place]171820 ElbertDanial fernie Lymphocyt 0.7 - 4.5 K/mm3 Normal No Jun 15 es informati 2016 5:40 [#/volume on in PM ] in source Unspecifi data ed specimen by Automated count Lymphocyt 10 - 50 % Normal No Jun 15 es informati 2016 5:40 [#/volume on in PM ] in source Unspecifi data ed specimen by Automated count Erythrocy 27 - 31.2 pg Low No Jun 15 te mean informati 2016 5:40 corpuscul on in PM ar source hemoglobi data n [Entitic mass] Erythrocy 31.8 - g/dl Low No Jun 15 te mean 35.4 informati 2016 5:40 corpuscul on in PM ar source hemoglobi data n concentra tion [Mass/vol ume] by Automated count Erythrocy 82.2 - fl Normal No Jun 15 te mean 97.8 informati 2016 5:40 corpuscul on in PM ar volume source [Entitic data volume] by Automated count Monocytes 0.1 - 1.0 K/mm3 Normal No Jun 15 informati 2016 5:40 [#/volume on in PM ] in source Blood by data Automated count Monocytes 1.7 - 9.3 % Normal No Jun 15 /100 informati 2016 5:40 leukocyte on in PM s in source Blood by data Automated count Platelet 7.4 - fl Normal No Jun 15 mean 10.4 informati 2016 5:40 volume on in PM [Entitic source volume] data in Blood by Automated count Platelets 142 - 424 K/mm3 Normal No Jun 15 informati 2016 5:40 [#/volume on in PM ] in source Blood data Erythrocy 4.6 - 6.2 M/mm3 Low No Jun 15 amber informati 2017 5:40 [#/volume on in PM ] in source Amniotic data fluid Erythrocy 11.5 - % Normal No Jun 15 te 17.5 informati 2016 5:40 distribut on in PM ion width source [Entitic data volume] by Automated count Leukocyte 4.8 - K/MM3 Low No Jun 15 s 10.8 informati 2017 5:40 [#/volume on in PM ] in source Blood data Hemoglobin & Hematocrit panel in Blood Observa Value Referen Units Interpr Notes Date tion ce etation Range Hematocri 42.0 - % Low alert Jun 15 t [Volume 52.0 2016 5:40 CRITICAL PM Fraction] RESULTS of Blood RESU LTS CALLED TO: [facility] 06/15/17 1759 Elbert,Rich fernie Hemoglobi 14.1 - g/dL Low alert Jun 15 n 18.0 2016 5:40 [Mass/vol CRITICAL PM ume] in RESULTS Blood RESU LTS CALLED TO: [facility] 06/15/17 1758 Elbert,Danial fernie Blood product special preparation [Type] Observa Value Referen Units Interpr Notes Date ti ce etation Range Blood BLOOD No No No BLOOD Jun 15 product UNIT informa informa informa UNIT # 2017 RELEASE tion in tion in in : W0382 2:32 PM special source source source 17 data data data [id number] prepara RELEASE tion D [Type] Laurie Dickinson aA POSITIV E Blood product special preparation [Type] Observa Value Referen Units Interpr Notes Date ti ce etation Range Blood BLOOD No No No BLOOD Jun 15 product UNIT informa informa informa UNIT # 2017 RELEASE tion in tion in ti in : W0382 1:05 PM special source source source 17 data data data [id number] prepara RELEASE tion D [Type] Laurie Dickinson aA POSITIV E Blood type & Crossmatch panel in Blood Observa Value Referen Units Interpr Notes Date tion ce etation Range Hold? Y Major COMPAT No No No No Jun 15 crossma informa informa informa informa 2017 tch tion in tion in tion in tion in 9:00 AM [interp source source source source retatio data data data data n] Major COMPAT No No No No Jun 15 crossma informa informa informa informa 2017 tch tion in tion in tion in tion in 9:00 AM [interp source source source source retatio data data data data n] by Immedia te spin Blood type & Crossmatch panel in Blood Observa Value Referen Units Interpr Notes Date tion ce etation Range Hold? Y Major COMPAT No No No No Jun 15 crossma informa informa informa informa 2017 tch tion in tion in tion in tion in 9:00 AM [interp source source source source retatio data data data data n] Major COMPAT No No No No Jun 15 crossma informa informa informa informa 2017 tch tion in tion in tion in tion in 9:00 AM [interp source source source source retatio data data data data n] by Immedia te spin Blood type & Crossmatch panel in Blood Observa Value Referen Units Interpr Notes Date tion ce etation Range SPECIMEN COMMENT: TRANSFUSE 2 NOW Hold? N Transfuse now? 2 UNITS NOW Major COMPAT No No No No Jun 15 crossma informa informa informa informa 2017 tch tion in tion in tion in tion in 9:00 AM [interp source source source source retatio data data data data n] Major COMPAT No No No No Jun 15 crossma informa informa informa informa 2017 tch tion in tion in tion in tion in 9:00 AM [interp source source source source retatio data data data data n] by Immedia te spin Blood type & Crossmatch panel in Blood Observa Value Referen Units Interpr Notes Date tion ce etation Range SPECIMEN COMMENT: TRANSFUSE 2 NOW Hold? N Transfuse now? 2 UNITS NOW Major COMPAT No No No No Jun 15 crossma informa informa informa informa 2017 tch tion in tion in tion in tion in 9:00 AM [interp source source source source retatio data data data data n] Major COMPAT No No No No Jun 15 crossma informa informa informa informa 2017 tch tion in tion in tion in tion in 9:00 AM [interp source source source source retatio data data data data n] by Immedia te spin Blood type & Crossmatch panel in Blood Observa Value Referen Units Interpr Notes Date ti ce etation Range SPECIMEN COMMENT: TRANSFUSE 2 NOW Hold? N Transfuse now? 2 UNITS NOW Major COMPAT No No No No Jun 15 crossma informa informa informa informa 2017 tch tion in tion in tion in tion in 9:00 AM [interp source source source source retatio data data data data n] Major COMPAT No No No No Jun 15 crossma informa informa informa informa 2017 tch tion in tion in tion in tion in 9:00 AM [interp source source source source retatio data data data data n] by Immedia te spin Blood type & Crossmatch panel in Blood Observa Value Referen Units Interpr Notes Date ti ce etation Range SPECIMEN COMMENT: TRANSFUSE 2 NOW Hold? N Transfuse now? 2 UNITS NOW Major COMPAT No No No No Jun 15 crossma informa informa informa informa 2017 tch tion in tion in tion in ti in 9:00 AM [interp source source source source retatio data data data data n] Major COMPAT No No No No Jun 15 crossma informa informa informa informa 2017 tch tion in tion in tion in tion in 9:00 AM [interp source source source source retatio data data data data n] by Immedia te spin Blood type & Crossmatch panel in Blood Observa Value Referen Units Interpr Notes Date ce etation Range Blood NEGATIV NEGATIV No No No Jun 15 group E E informa informa informa 2017 antibod tion in tion in tion in 9:00 AM y source source source screen data data data [Presen ce] in Serum or Plasma Rh POSITIV No No No No Jun 15 [Type] E informa informa informa informa 2017 in tion in tion in tion in tion in 9:00 AM Blood source source source source data data data data ABO A No No No No Jun 15 group informa informa informa informa 2017 [Type] tion in tion in tion in tion in 9:00 AM in source source source source Blood data data data data Hemoglobin.gastrointestinal [Presence] in Stool Observa Value Referen Units Interpr Notes Date tion ce etation Range Hemoglo POSITIV NEG No No No Jun 15 bin.gas E informa informa informa 2016 trointe tion in tion in tion in 8:30 AM stinal source source source [Presen data data data ce] in Stool --1st specime n CBC W Auto Differential panel in Blood Observa Value Referen Units Interpr Notes Date ti ce etation Range Basophils 0 - 0.2 K/MM3 Normal No Jun 15 informati 2016 8:14 [#/volume on in AM ] in source Blood by data Automated count Basophils 0.1 - 2.0 % Normal No Jun 15 informati 2016 8:14 leukocyte on in AM s in source Blood by data Automated count Eosinophi 0.0 - 0.4 K/mm3 Normal No Jun 15 ls informati 2016 8:14 [#/volume on in AM ] in source Blood by data Automated count Eosinophi 0.1 - % Normal No Jun 15 ls/100 12.0 informati 2016 8:14 leukocyte on in AM s in source Blood by data Automated count Granulocy 1.3 - 8.0 K/mm3 Normal No Jun 15 amber informati 2016 8:14 [#/volume on in AM ] in source Blood by data Automated count Granulocy 37.0 - % Normal No Jun 15 amber/100 80.0 informati 2016 8:14 leukocyte on in AM s in source Blood by data Automated count Hematocri 42.0 - % Low alert Jun 15 t [Volume 52.0 2016 8:14 CRITICAL AM Fraction] RESULTS of Blood RESU LTS CALLED TO: [facility] 06/15/17 0832 Elbert,Rich fernie Hemoglobi 14.1 - g/dL Low alert Jun 15 n 18.0 2016 8:14 [Mass/vol CRITICAL AM ume] in RESULTS Blood RESU LTS CALLED TO: [facility] 06/15/17 0832 Elbert,Rich fernie Lymphocyt 0.7 - 4.5 K/mm3 Normal No Jun 15 es informati 2017 8:14 [#/volume on in AM ] in source Unspecifi data ed specimen by Automated count Lymphocyt 10 - 50 % Normal No Jun 15 es informati 2017 8:14 [#/volume on in AM ] in source Unspecifi data ed specimen by Automated count Erythrocy 27 - 31.2 pg Low No Jun 15 te mean informati 2017 8:14 corpuscul on in AM ar source hemoglobi data n [Entitic mass] Erythrocy 31.8 - g/dl Low No Jun 15 te mean 35.4 informati 2017 8:14 corpuscul on in AM ar source hemoglobi data n concentra tion [Mass/vol ume] by Automated count Erythrocy 82.2 - fl Low No Jun 15 te mean 97.8 informati 2017 8:14 corpuscul on in AM ar volume source [Entitic data volume] by Automated count Monocytes 0.1 - 1.0 K/mm3 Normal No Jun 15 informati 2017 8:14 [#/volume on in AM ] in source Blood by data Automated count Monocytes 1.7 - 9.3 % Normal No Jun 4 /100 informati 2017 8:14 leukocyte on in AM s in source Blood by data Automated count Platelet 7.4 - fl Normal No Jun 15 mean 10.4 informati 2017 8:14 volume on in AM [Entitic source volume] data in Blood by Automated count Platelets 142 - 424 K/mm3 Normal No Jun 15 informati 2017 8:14 [#/volume on in AM ] in source Blood data Erythrocy 4.6 - 6.2 M/mm3 Low No Jun 15 amber informati 2017 8:14 [#/volume on in AM ] in source Amniotic data fluid Erythrocy 11.5 - % High No Jun 15 te 17.5 informati 2017 8:14 distribut on in AM ion width source [Entitic data volume] by Automated count Leukocyte 4.8 - K/MM3 Normal No Jun 15 s 10.8 informati 2016 8:14 [#/volume on in AM ] in source Blood data
--- OUTSIDE RECORDS SUMMARY | 2017-06-16 05:14 | External Medical Summary Rpt ---
Author Author , NATHANIEL PETERSON Address Unknown Phone [email or web address] Purpose Continuity of Care Document - 06-15-2017 [...]
--- OUTSIDE RECORDS SUMMARY | 2017-06-16 05:14 | External Medical Summary Rpt ---
Demographics Preferred Language Danish Marital Status Unknown Advent Affiliation Unknown Race Unknown Ethnic Group Unknown Author Author , NATHANIEL PETERSON Address Unknown Phone Immunization Unable to retrieve immunization data due to connection failure with Immunization Registry. Please try again later.
--- OUTSIDE RECORDS SUMMARY | 2017-06-16 05:14 | External Medical Summary Rpt ---
Demographics Preferred Language Puerto Rican Marital Status Unknown Yazidism Affiliation Unknown Race Unknown Ethnic Group Unknown Author Author , NATHANIEL PETERSON Address Unknown Phone Immunization Unable to retrieve immunization data due to connection failure with Immunization Registry. Please try again later.
--- OUTSIDE RECORDS SUMMARY | 2017-06-16 05:14 | External Medical Summary Rpt ---
Author Author , NATHANIEL PETERSON Address Unknown Phone [email or web address] Purpose Continuity of Care Document - 06-15-2017 [...]
--- OUTSIDE RECORDS SUMMARY | 2017-06-16 05:14 | External Medical Summary Rpt ---
[...] source source source 17 data data data [id number] prepara RELEASE tion D [Type] 7 2000Spa rks,Maicol nA POSITIV E Blood product special preparation [Type] Observa Value Referen Units Interpr Notes Date ti ce etation Range Blood BLOOD No No No BLOOD Jun 4 product UNIT informa informa informa UNIT # 2017 RELEASE tion in in in : W0382 6:16 PM special source source source 17 data data data [id number] prepara RELEASE tion D [Type] 7 1816Spa [...] PM Fraction] RESULTS of Blood [facility] CALLED TO: [facility] [place] 06/15/17 1821 Elbert,Rich fernie Hemoglobi 14.1 - g/dL Low alert Jun 15 n 18.0 2016 5:40 [Mass/vol CRITICAL PM ume] in RESULTS Blood RESU LTS CALLED TO: [facility] [place] 06/15/171820 ElbertDanial fernie Lymphocyt 0.7 - 4.5 [...] source source source 17 data data data [id number] prepara RELEASE tion D [Type] Laurie Dickinson aA POSITIV E Blood product special preparation [Type] Observa Value Referen Units Interpr Notes Date ti ce etation Range Blood BLOOD No No No BLOOD Jun 15 product UNIT informa informa informa UNIT # 2017 RELEASE tion in tion in ti in : W0382 1:05 PM special source source source 17 data data data [id number] prepara RELEASE tion D [Type] Laurie Dickinson [...]
--- OUTSIDE RECORDS SUMMARY | 2017-06-16 05:15 | External Medical Summary Rpt ---
[...] source source source 17 data data data [id number] prepara RELEASE tion D [Type] 7 2000Spa rks,Maicol nA POSITIV E Blood product special preparation [Type] Observa Value Referen Units Interpr Notes Date ti ce etation Range Blood BLOOD No No No BLOOD Jun 4 product UNIT informa informa informa UNIT # 2017 RELEASE tion in in in : W0382 6:16 PM special source source source 17 data data data [id number] prepara RELEASE tion D [Type] 7 1816Spa [...] 5:40 CRITICAL PM Fraction] RESULTS of Blood [facility] CALLED TO: [facility] [place]/15/17 1821 Elbert,Rich fernie Hemoglobi 14.1 - g/dL Low alert Jun 15 n 18.0 2016 5:40 [Mass/vol CRITICAL PM ume] in RESULTS Blood RESU LTS CALLED TO: [facility] [place] 06/15/171820 ElbertDanial fernie Lymphocyt 0.7 - 4.5 [...] source source source 17 data data data [id number] prepara RELEASE tion D [Type] Laurie Dickinson aA POSITIV E Blood product special preparation [Type] Observa Value Referen Units Interpr Notes Date ti ce etation Range Blood BLOOD No No No BLOOD Jun 15 product UNIT informa informa informa UNIT # 2017 RELEASE tion in tion in ti in : W0382 1:05 PM special source source source 17 data data data [id number] prepara RELEASE tion D [Type] Laurie Dickinson [...]
--- OUTSIDE RECORDS SUMMARY | 2017-06-16 05:15 | External Medical Summary Rpt ---
[...] source source source 17 data data data [id number] prepara RELEASE tion D [Type] 7 2000Spa rks,Maicol nA POSITIV E Blood product special preparation [Type] Observa Value Referen Units Interpr Notes Date ti ce etation Range Blood BLOOD No No No BLOOD Jun 4 product UNIT informa informa informa UNIT # 2017 RELEASE tion in in in : W0382 6:16 PM special source source source 17 data data data [id number] prepara RELEASE tion D [Type] 7 1816Spa [...] 5:40 CRITICAL PM Fraction] RESULTS of Blood [facility] [place] [place] [facility] [place] 1821 Elbert,Rich fernie Hemoglobi 14.1 - g/dL Low alert Jun 15 n 18.0 2016 5:40 [Mass/vol CRITICAL PM ume] in RESULTS Blood [place] [facility] [place]171820 ElbertDanial fernie Lymphocyt 0.7 - 4.5 [...] source source source 17 data data data [id number] prepara RELEASE tion D [Type] Laurie Dickinson aA POSITIV E Blood product special preparation [Type] Observa Value Referen Units Interpr Notes Date ti ce etation Range Blood BLOOD No No No BLOOD Jun 15 product UNIT informa informa informa UNIT # 2017 RELEASE tion in tion in ti in : W0382 1:05 PM special source source source 17 data data data [id number] prepara RELEASE tion D [Type] Laurie Dickinson [...] RESU LTS CALLED TO: [facility] 06/15/17 0832 Elbret,Rich fernie Lymphocyt 0.7 - 4.5 K/mm3 Normal [...]
--- NOTE | 2017-06-16 08:34 | ACUTE CARE PROGRESS NOTE (QUA) ---
Progress Notes Subjective Date 06/16/17 Time 0831 Note Rested well last night. No c/o abdominal pain or nausea. Tolerating diet. Has received 4 units of blood thus far. Objective Findings Laboratory Tests 06/15/17 2300: Hgb 8.6 L, Hct 26.4 L 06/15/17 2000: Misc Test Units BLOOD UNIT RELEASE 06/15/17 1816: Misc Test Units BLOOD UNIT RELEASE 06/15/17 1740: Hgb 7.4 *L, Hct 23.6 *L 06/15/17 1740: Sodium 142, Potassium 3.9, Chloride 110 H, Carbon Dioxide 19 L, BUN 44 H, Creatinine 1.3, Estimated Creat Clear 72, Estimated GFR (MDRD) 56, Glucose 206 H, Calcium 7.7 L, WBC 4.5 L, RBC 2.81 L, Hgb 7.4 *L, Hct 23.6 *L, MCV 84.0, RDW 17.4, Plt Count 227, MPV 8.1, Gran % 63.6, Gran # 2.9, Lymphocytes % 31.1, Monocytes % 4.2, Eosinophils % 0.6, Basophils % 0.4, Lymphocytes # 1.4, Monocytes # 0.2, Eosinophils # 0.0, Basophils # 0.0, PUBS MCHC 31.3 L, MCH 26.3 L 06/15/17 1432: Misc Test Units BLOOD UNIT RELEASE 06/15/17 1305: Misc Test Units BLOOD UNIT RELEASE 06/15/17 0900: Antibody Screen NEGATIVE, Miscellaneous Test POSITIVE Last VS-Temp:98.1 B/P: 125/81 Pulse:90 Resp:18 SaO2:95 ROOM AIR Last weight lbs: 192 oz: 9 K.346 Method: Bed Scales Exam General appearance: alert, no acute distress Respiratory: clear to auscultation ABD: soft, no tenderness Extremities: no peripheral edema Skin: normal color Assessment/Plan Problem List 1. Upper GI bleed Status: Acute 2. Anemia Status: Acute 3. Hypertension Status: Chronic 4. CAD (coronary artery disease) Status: Chronic 5. GERD (gastroesophageal reflux disease) Status: Chronic 6. DM2 (diabetes mellitus, type 2) Status: Chronic Patient condition Stable Plan: AM labs pending. Continue IV Protonix. Further recommendations per Dr. Souza. This inpt stay is expected to cross 2 MNs from start of care Yes at 0813
[2017-06-16 08:52] LABS: HEMOGLOBIN 9.1 g/dL (14.1-18.0); LYMPH # 1.1 K/mm3 (0.7-4.5); LYMPH % 21.6 % (10-50)
--- NOTE | 2017-06-16 15:27 | PHARMACY CLINIC NOTE ---
Patient Demographics Patient Demographics Admission date: 06/15/17 Date: 06/16/17 Time: 1526 Allergies Coded Allergies: No Known Allergies (03/06/17) HEIGHT- FT: 6 IN: 1.00 K.346 VTE General Information Labs: Laboratory Tests 06/16 06/15 06/15 06/15 0825 2300 1740 1740 Hematology Hgb (14.1 - 18.0 g/dL) 9.1 L 8.6 L 7.4 *L 7.4 *L Hct (42.0 - 52.0 %) 27.9 L 26.4 L 23.6 *L 23.6 *L Plt Count (142 - 424 K/mm3) 228 227 Disclaimer The following section includes nursing documentation that has been pulled in for pharmacy review. Patient's VTE score: 1 Patient's VTE Risk: VERY LOW RISK Clinical trial participant? No VTE prophylaxis NQF [id number] VTE prophylaxis ordered? Yes Type of prophylaxis/treatment: MARELY at 1524
[2017-06-17] VITALS (21 sets, daily range): BP systolic 108–143; BP diastolic 58–94
[2017-06-17 06:28] LABS: HEMOGLOBIN 9.2 g/dL (14.1-18.0)
--- NOTE | 2017-06-17 08:34 | ACUTE CARE PROGRESS NOTE (QUA) ---
See Addendum Progress Notes Subjective Date 06/17/17 Time 0830 Note Slept well and feels good this morning. No abdominal pain or nausea. Tolerating advance diet Objective Findings Laboratory Tests 06/17/17 0540: Hgb 9.2 L, Hct 28.1 L 06/16/17 1448: Misc Test Units BLOOD UNIT RELEASE Last VS-Temp:98.3 B/P: 116/69 Pulse:86 Resp:18 SaO2:98 ROOM AIR Last weight lbs: 192 oz: 9 K.346 Method: Bed Scales Exam General appearance: alert, awake Cardiovascular: regular rate & rhythm Assessment/Plan Problem List 1. Upper GI bleed Status: Acute 2. Anemia Status: Acute 3. Hypertension Status: Chronic 4. CAD (coronary artery disease) Status: Chronic 5. GERD (gastroesophageal reflux disease) Status: Chronic 6. DM2 (diabetes mellitus, type 2) Status: Chronic Plan: H&H did not increase much after blood yesterday. No signs of recurring bleeding. WOuld like to get H&H above 10. Will tranfuse 2 units today. Continue IV Protonix per surgery recommendations. Resume diabetic meds and sliding scale insulin. This inpt stay is expected to cross 2 MNs from start of care Yes at 0804
[2017-06-17 13:22] LABS: ANTIHUMAN GLOB CROSSMATCH COMPAT
[2017-06-17 17:38] LABS: HEMOGLOBIN 10.9 g/dL (14.1-18.0)
[2017-06-17] MEDS ORDERED: PROTONIX 40MG T40 MG PO (18:01)
--- NOTE | 2017-06-21 09:11 | DISCHARGE SUMMARY STANDARD ---
Discharge Summary (FCA2) Date of admission: 06/15/17 Date of discharge: 06/17/17 Problem List: 1. Upper GI bleed 2. Anemia 3. Hypertension 4. CAD (coronary artery disease) 5. GERD (gastroesophageal reflux disease) 6. DM2 (diabetes mellitus, type 2) History of present illness: Mr. Ferreira was a 61yo WM with a hx of DM, HTN, CAD with NM and stents placed 2016, GERD, and gout who presented to the [facility] ED with some dizziness and fatigue. According to the patient and his , he had started experiencing some dizziness and fatigue the previous morning while working outside. His symptoms had progressed throughout the day to include weakness with any physical exertion. Pt reported that he had also experienced one episode of dark stool. He noted that he was seen in the office of A in February of current year for melena while taking Brilinta, ASA, Xarelto, and Naproxen. He was instructed to stop ASA and naproxen at that time and had no further recurrence of melena. Pt and described his symptoms overnight as much worse, which prompted ED visit. Upon arrival, pt H&H was found to be critically low with a positive stool occult blood. His EKG showed NSR with baseline artifact and no acute finding. Xray of abdomen and chest revealed no acute finding. The case was discussed with Dr. Hopson and the patient was admitted for transfusion and surgery consult. Exam on admission: General appearance: alert, awake, no acute distress Eyes: anicteric, conjunctiva clear, PERRLA ENT: mucous membranes moist, pharynx normal, nares patent Neck: non-tender, supple, no LAD Cardiovascular: regular rate & rhythm, normal peripheral pulses Respiratory: CTAB A&P, good air movement ABD: non-distended, no rebound, soft, no tenderness, no guarding, no organomegaly, no palpable mass, bowel sounds present Extremities: moves all, no peripheral edema, no calf tenderness Skin: dry, intact, warm Neuro: alert, oriented, no focal deficit Hospital Course: Patient was admitted and received 4 units of PRBC's. He was started on IV PPI. 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 The following day , the patient was feeling better and tolerating diet and activity. His H&H had improved to 9.1/.9 and he received another unit of PRBC's. By the morning of , the patient was eager to go home although his H&H had improved only minimally. He received an additional 2 units of PRBC's and by the evening, his H &H was felt to be adequate. He was discharged home with instruction to followup with Dr. Hopson the following day for repeat CBC. Discharge medications: Stop taking the following medications: Naproxen (Naproxen) 500 MG TABLET ORAL TWICE A DAY Qty = 60 Omeprazole (Omeprazole 20MG) 20 MG CAPSULE. ORAL TWICE A DAY Qty = 60 Rivaroxaban (Xarelto) 20 MG TABLET ORAL DAILY Qty = 30 Continue taking these medications: OMEGA-3S/DHA/EPA/FISH OIL (Fish Oil 1,200 MG Softgel) 360-1,200MG CAPSULE 1,200 MILLIGRAM ORAL THREE TIMES A DAY Ascorbic Acid (C-1000) 1,000 MG TABLET 1,000 MILLIGRAM ORAL DAILY Allopurinol (Allopurinol) 300 MG TABLET 150 MILLIGRAM ORAL DAILY Qty = 30 DILTIAZEM HCL (Tiazac) 180 MG CAPSULE.ER 180 MILLIGRAM ORAL DAILY Glipizide (Glipizide 5MG) 5 MG TABLET 5 MILLIGRAM ORAL DAILY FENOFIBRATE NANOCRYSTALLIZED (Fenofibrate) 145 MG TABLET 145 MILLIGRAM ORAL DAILY Qty = 30 CANAGLIFLOZIN/METFORMIN HCL (Invokamet 150-1,000 MG Tablet) 1 EACH TABLET 1 TABLET ORAL TWICE A DAY Qty = 60 Pitavastatin Calcium (Livalo) 4 MG TABLET 4 MILLIGRAM ORAL DAILY Qty = 30 Losartan Potassium (Losartan 100MG) 100 MG TABLET 50 MILLIGRAM ORAL DAILY Qty = 30 Ticagrelor (Brilinta) 90 MG TABLET 90 MILLIGRAM ORAL TWICE A DAY Qty = 60 Start taking the following new medications: Pantoprazole Sodium (Protonix 40MG TAB) 40 MG TABLET. 40 MILLIGRAM ORAL TWICE A DAY Qty = 60 Refills = 2 Disposition: Follow up with: Len Hopson MD Follow up: 1 DAY Activity: Cont Current activity Diet: Diabetic Diet Discharge to: HOME Agency needed? N at 0911
== END 2017-06-17 18:22 | disposition home or self-care (01) | DRG 379 ==
LOC: ER 07:44 → 2ND 09:10
PROVIDERS: Emergency Medicine; Family Medicine; Surgery
PROC: 0DJ08ZZ Inspection of Upper Intestinal Tract, Via Natural or Artificial Opening Endoscopic (ICD-10-PCS; principal; 2017-06-15 16:00)
DX: K92.2 Gastrointestinal hemorrhage, unspecified (principal); I10 Essential (primary) hypertension; E11.9 Type 2 diabetes mellitus without complications; D64.9 Anemia, unspecified; M10.9 Gout, unspecified; Z95.5 Presence of coronary angioplasty implant and graft; I25.10 Atherosclerotic heart disease of native coronary artery without angina pectoris
CPT/HCPCS: G0328; P9016

== ENCOUNTER 2017-10-06 08:07 | Emergency (ER) | payer OTHER ==
[~2017-10-06] VITALS: Ht 185.4 cm; Wt 86.2 kg
[~2017-10-06 08:07] MED LIST changes: +ALLOPURINOL300 M1 PO; +BRILINTA90 M1 PO; +DILTIAZEM 180180 MG PO; +FENOFIBRATE145 MG PO; +GLIPIZIDE 5MG TA5 MG PO; +INVOKAMET1 TAB PO; +LIVALO4 MG PO; +LOSARTAN POTAS100 MG PO; +NAPROXEN500 M1 PO; +OMEPRAZOLE20 MG PO; +PROTONIX 40MG T40 MG PO; +XARELTO20 MG PO
[2017-10-06] MEDS ORDERED: SOTALOL HCL80 MG PO (08:23)
--- NOTE | 2017-10-06 08:23 | Emergency Room Report ---
See Addendum History of Present Illness Time Seen by [id number] Presenting Problem in Triage Pt arrived:Walked Presenting Problem:PT STATES HE FEELS LIKE HE IS IN A.FIB. PT STATES HE FEELS JITTERY AND LIKE HIS HEART IS OUT OF RHYTHM. 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 N Clinical Suspician of Infection? N Mental Status: 1 - Regular (Normal Baseline) Sepsis Risk:Low Sepsis Risk Have you (or family members/close friends) recently traveled outside the [place]? N If Yes, where/when: Have you had exposure to infectious disease within the past month? N TB? Other? Specify: Source patient, RN notes reviewed, old records Exam Limitations no limitations Comment pt with hx of known a fib and has acute excerbation this am - no chest pain or syncope - Cardiac Chest Pain Chest pain indicative of cardiac No Timing/Duration this morning Severity moderate ALLERGIES Coded Allergies: No Known Allergies (03/06/17) Home Medications Reported Medications OMEGA-3S/DHA/EPA/FISH OIL (Fish Oil 1,200 MG Softgel) 1,200 MG PO TID Ascorbic Acid (C-1000) 1,000 MG PO DAILY Allopurinol 150 MG PO DAILY #30 TAB Ticagrelor (Brilinta) 90 MG PO BID #60 TAB Glipizide (Glipizide 5MG) 5 MG PO DAILY FENOFIBRATE NANOCRYSTALLIZED (Fenofibrate) 145 MG PO DAILY #30 CANAGLIFLOZIN/METFORMIN HCL (Invokamet 150-1,000 MG Tablet) 1 TAB PO BID #60 Pitavastatin Calcium (Livalo) 2 MG PO DAILY #30 TAB Losartan Potassium (Losartan 100MG) 50 MG PO DAILY #30 Sotalol Hcl (Sotalol) 80 MG PO DAILY PRN AFIB #60 Pantoprazole Sodium (Pantoprazole 40MG) 40 MG PO DAILY History Medical History General CAD? Yes Angina: No RI: Yes Hypertension? Yes Hyperlipidemia? Yes CHF? No DVT? No PE? No COPD? No Asthma? No Anemia? No GERD? Yes Gastric ulcers? No GI Bleed? No Hernia? No Thyroid Problems? No Hypothyroidism? No CVA? No Seizures? No Diabetes? Yes Insulin Dependent: No Insulin Pump: No Home FSBS? No Renal Insuffiency? No UTI? No Stones? No BPH? No GB Disease: No Nephritic Syndrome? No Asplenia? No Hepatitis? No Sickle Cell Disease? No Arthritis? No Migraines? No Cataracts? No Glaucoma? No MRSA? Yes HIV? No TB? No Anxiety? No Depression? No Cancer? No More? No Immunization Hx DT/Tetanus 5-10 Years Ago Flu Refused Pneumonia Refuses Surgical Hx Previous Surgery?N HEART STENT Family History Family Hx Diabetes Yes CAD No Hypertension Yes Hyperlipidemia Yes Cancer No TB No Social History Smoking Hx Smoker: Never Smoker Tobacco: No Packs/day < 1 Pack Alcohol Alcohol: Yes Drugs none Review of Systems All Other Systems Reviewed and Negative Constitutional denies fever Eyes denies drainage ENT denies: ear discharge, epistaxis, throat pain. Respiratory denies cough, denies shortness of breath, denies wheezing Cardiovascular see HPI, denies chest pain, palpitations, denies syncope Gastrointestinal denies abdominal pain, denies diarrhea, denies vomiting Genitourinary denies: dysuria, frequency, hesitancy, hematuria. Musculoskeletal denies back pain, denies joint pain, denies joint swelling, denies neck pain Skin denies rash Psychiatric/Neurological denies depressed, denies seizure Physical Exam Vital Signs Vital Signs Date Time Temp Pulse Resp B/P Pulse O2 O2 Flow FiO2 Ox Delivery Rate 10/06 0811 97.5 114 18 130/93 97 - WBC >12,000 or <4,000 or 10% bands? 2 or more SIRS Criteria Met? B/P:130/93 MAP:105 Creatinine >2.0? UA output<0.5ml/kg/hr for 2 hrs? Platelet count >100,000? Lactate >2.0mmol/1? INR >1.2 or PTT > than 60 sec? Evidence of Organ Dysfunction? Provider documented clinical suspician of infection? N Sepsis Criteria Count: 1 Sepsis Risk: Low Sepsis Risk General Appearance no apparent distress Eye Exam - bilateral eye PERRL, bilateral eye EOMI Ear, Nose, Throat normal ENT inspection Neck supple Respiratory Status No: respiratory distress. Lung Sounds bilateral: lungs clear. 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 No Results/Orders Laboratory Tests 10/06/17 0820: Sodium 141, Potassium 4.3, Chloride 107, Carbon Dioxide 21 L, BUN 31 H, Creatinine 1.5 H, Estimated Creat Clear 61, Estimated GFR (MDRD) 47, Glucose 161 H, Calcium 9.0, Total Bilirubin 0.2, AST 22, ALT 29, Alkaline Phosphatase 54, Troponin I < 0.02, Total Protein 7.4, Albumin 3.6, Globulin 3.8 H, Albumin/ Globulin Ratio 0.9 L, WBC 5.6, RBC 5.48, Hgb 15.8, Hct 47.9, MCV 87.5, RDW 15.1 , Plt Count 244, MPV 7.2 L, Gran % 53.9, Gran # 3.0, Lymphocytes % 34.4, Monocytes % 6.8, Eosinophils % 3.9, Basophils % 1.0, Lymphocytes # 1.9, Monocytes # 0.4, Eosinophils # 0.2, Basophils # 0.1, PUBS MCHC 32.9, MCH 28.8 Current Medication Orders Sig/Suraj Start time Last Medication Dose Route Stop Time Status Admin Diltiazem HCl 240 MG ONCE ONE 10/06 845 CAN PO 10/06 846 Diltiazem HCl 240 MG ONCE ONE 10/06 845 CAN PO 10/06 846 Diltiazem HCl 240 MG ONCE ONE 10/06 845 DC 10/06 PO 10/06 846 0844 Sodium Chloride 10 ML PRN PRN 10/06 845 AC IV 10/07 834 Orders Procedure Date/time Status ELECTROCARDIOGRAM REQUEST 10/06 834 Active IV SALINE LOCK 10/06 834 Active TROPONIN I 10/06 834 Complete COMPLETE METABOLIC PANEL 10/06 834 Complete CBC WITH AUTO DIFF 10/06 834 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 ST/Twave chgs Departure Departure Time of Disposition 928 Disposition DC Home or Self Care(routine) Clinical Impression Primary Impression: Atrial fibrillation with rapid ventricular response Condition STABLE Referrals Len Hopson MD (Family) discussed with dr ng Patient Instructions DI for Atrial Fibrillation Additional Instructions stop sotolol and use cardizam 180 mg bid and see card on sunday Discharge Counseling Counseled pt/family regarding diagnosis, test results, medications/RX, follow up needs ED Critical Care Critical Care No at 0932
--- OUTSIDE RECORDS SUMMARY | 2017-10-06 08:28 | External Medical Summary Rpt | CCD ---
Author Author , NATHANIEL PETERSON Address Unknown Phone [email or web address] Purpose Continuity of Care Document - 06-15-2017 through 2016 Results Labs Lab Lab Date Result Refere Interp Status Commen Order Detail nces retati t Range on Blood product special preparation [Type] (06-17-2017 14:45) Blood BLOOD complet product 017 UNIT ed 14:45 RELEASE special prepara tion [Type] Blood product special preparation [Type] (06-17-2017 12:21) Blood BLOOD complet product 017 UNIT ed 12:21 RELEASE special prepara tion [Type] Blood type & Crossmatch panel in Blood (06-17-2017) Major COMPAT complet crossma 017 ed tch [interp retatio n] Major COMPAT complet crossma 017 ed tch [interp retatio n] by Immedia te spin Blood product special preparation [Type] (06-16-2017 14:48) Blood BLOOD complet product 017 UNIT ed 14:48 RELEASE special prepara tion [Type] Blood product special preparation [Type] (06-15-2017 20:00) [...] Crossmatch panel in Blood (06-15-2017 09:00) Major 08-04-2 COMPAT complet crossma 017 ed tch 09:00 [...]
--- OUTSIDE RECORDS SUMMARY | 2017-10-06 08:28 | External Medical Summary Rpt | CCD ---
Author Author , NATHANIEL PETERSON Address Unknown Phone [email or web address] Purpose Continuity of Care Document - 06-15-2017 [...]
--- OUTSIDE RECORDS SUMMARY | 2017-10-06 08:29 | External Medical Summary Rpt ---
Author Author NICHOLAS Amaro, NOAHNIKHIL Production Organization [facility] [employer] Address Unknown Phone Unavailable Results Hemoglobin & Hematocrit panel in Blood Observa Value Referen Units Interpr Notes Date tion ce etation Range Hematocri 42.0 - % Low No Aug 6 t [Volume 52.0 informati 2017 5:25 on in PM Fraction] source of Blood data Hemoglobi 14.1 - g/dL Low No Aug 6 n 18.0 informati 2017 5:25 [Mass/vol on in PM ume] in source Blood data Glucose [Mass/volume] in Capillary blood by Glucometer Observa Value Referen Units Interpr Notes Date tion ce etation Range Glucose 70 - 110 mg/dl High No Aug 6 [Mass/vol informati 2017 4:25 ume] in on in PM Capillary source blood by data Glucomete r Blood product special preparation [Type] Observa Value Referen Units Interpr Notes Date tion ce etation Range Blood BLOOD No No No BLOOD Aug 6 product UNIT informa informa informa UNIT # 2017 RELEASE tion in in in : W0382 2:45 PM special source source source 17 data data data [id number] prepara RELEASE tion D [Type] 7Noel,R ichardA POS Blood product special preparation [Type] Observa Value Referen Units Interpr Notes Date tion ce etation Range Blood BLOOD No No No BLOOD Aug 6 product UNIT informa informa informa UNIT # 2017 RELEASE tion in in in : W0382 12:21 special source source source 17 PM data data data [id number] prepara RELEASE tion D [Type] 7Noel,R ichardA POS Glucose [Mass/volume] in Capillary blood by Glucometer Observa Value Referen Units Interpr Notes Date tion ce etation Range Glucose 70 - 110 mg/dl No No Aug 6 [Mass/vol informati informati 2016 ume] in on in on in 11:22 AM Capillary source source blood by data data Glucomete r Hemoglobin & Hematocrit panel in Blood Observa Value Referen Units Interpr Notes Date ti ce etation Range Hematocri 42.0 - % Low No Jun 17 t [Volume 52.0 informati 2016 5:40 on in AM Fraction] source of Blood data Hemoglobi 14.1 - g/dL Low No Jun 17 n 18.0 informati 2016 5:40 [Mass/vol on in AM ume] in source Blood data Blood type & Crossmatch panel in Blood Observa Value Referen Units Interpr Notes Date ti ce etation Range Hold? N Transfuse now? 1 UNIT NOW Major COMPAT No No No No Jun 17 crossma informa informa informa informa 2017 tch tion in tion in tion in tion in [interp source source source source retatio data data data data n] Major COMPAT No No No No Jun 17 crossma informa informa informa informa 2017 tch tion in tion in tion in tion in [interp source source source source retatio data data data data n] by Immedia te spin Blood product special preparation [Type] Observa Value Referen Units Interpr Notes Date ce etation Range Blood BLOOD No No No BLOOD Jun 16 product UNIT informa informa informa UNIT # 2017 RELEASE tion in tion in ti in : W0382 2:48 PM special source source source 17 data data data [id number] prepara RELEASE ti D [Type] 7Noel,R ichardA POS Basic metabolic panel in Blood Observa Value Referen Units Interpr Notes Date ti ce etation Range Urea 7 - 18 mg/dL High No Jun 16 nitrogen informati 2016 8:25 [Mass/vol on in AM ume] in source Serum or data Plasma Calcium 8.5 - mg/dL Low No Jun 16 [Mass/vol 10.1 informati 2017 8:25 ume] in on in AM Serum or source Plasma data Chloride 98 - 107 mmoL/L Normal No Jun 16 [Moles/vo informati 2017 8:25 lume] in on in AM Serum or source Plasma data Carbon 21.0 - mmoL/L Low No Jun 16 dioxide, 32.0 informati 2017 8:25 total on in AM [Moles/vo source lume] in data Serum or Plasma Creatinin 0.70 - mg/dL Normal No Jun 16 e 1.30 informati 2016 8:25 [Mass/vol on in AM ume] in source Serum or data Plasma Creatinin 50 - 200 ML/MIN Normal No Jun 16 e renal informati 2016 8:25 clearance on in AM source predicted data by Cockcroft -Gault formula Estimated >60 ML/MIN No REFERENCE Jun 16 informati RANGE: 2017 8:25 glomerula on in >60 AM r source ML/MIN/1. filtratio data 73 SQUARE n rate METERSIf (GF this patient is -A merican, then multiply theresult by 1.210. Glucose 74 - 106 mg/dL High No Jun 16 [Mass/vol informati 2016 8:25 ume] in on in AM Serum or source Plasma data Potassium 3.5 - 5.1 mmoL/L Normal No Jun 16 inform2016 8:25 [Moles/vo on in AM lume] in source Serum or data Plasma Sodium 136 - 145 mmoL/L Normal No Jun 16 [Moles/vo ati 2016 8:25 lume] in on in AM Serum or source Plasma data CBC W Auto Differential panel in Blood Observa Value Referen Units Interpr Notes Date tion ce etation Range Basophils 0 - 0.2 K/MM3 Normal No Jun 16 informati 2016 8:25 [#/volume on in AM ] in source Blood by data Automated count Basophils 0.1 - 2.0 % Normal No Jun 16 /100 informati 2016 8:25 leukocyte on in AM s in source Blood by data Automated count Eosinophi 0.0 - 0.4 K/mm3 Normal No Jun 16 ls informati 2016 8:25 [#/volume on in AM ] in source Blood by data Automated count Eosinophi 0.1 - % Normal No Jun 16 ls/100 12.0 informati 2016 8:25 leukocyte on in AM s in source Blood by data Automated count Granulocy 1.3 - 8.0 K/mm3 Normal No Jun 16 amber informati 2016 8:25 [#/volume on in AM ] in source Blood by data Automated count Granulocy 37.0 - % Normal No Jun 16 amber/100 80.0 informati 2016 8:25 leukocyte on in AM s in source Blood by data Automated count Hematocri 42.0 - % Low No Jun 16 t [Volume 52.0 informati 2016 8:25 on in AM Fraction] source of Blood data Hemoglobi 14.1 - g/dL Low No Jun 16 n 18.0 informati 2016 8:25 [Mass/vol on in AM ume] in source Blood data Lymphocyt 0.7 - 4.5 K/mm3 Normal No Jun 16 es informati 2016 8:25 [#/volume on in AM ] in source Unspecifi data ed specimen by Automated count Lymphocyt 10 - 50 % Normal No Jun 16 es informati 2016 8:25 [#/volume on in AM ] in source Unspecifi data ed specimen by Automated count Erythrocy 27 - 31.2 pg Normal No Jun 16 te mean informati 2016 8:25 corpuscul on in AM ar source hemoglobi data n [Entitic mass] Erythrocy 31.8 - g/dl Normal No Jun 16 te mean 35.4 informati 2017 8:25 corpuscul on in AM ar source hemoglobi data n concentra tion [Mass/vol ume] by Automated count Erythrocy 82.2 - fl Normal Jun 16 te mean 97.8 informati 2016 8:25 corpuscul on in AM ar volume source [Entitic data volume] by Automated count Monocytes 0.1 - 1.0 K/mm3 Normal No Jun 16 informati 2017 8:25 [#/volume on in AM ] in source Blood by data Automated count Monocytes 1.7 - 9.3 % Normal No Jun 16 /100 informati 2017 8:25 leukocyte on in AM s in source Blood by data Automated count Platelet 7.4 - fl Normal Jun 16 mean 10.4 informati 2017 8:25 volume on in AM [Entitic source volume] data in Blood by Automated count Platelets 142 - 424 K/mm3 Normal No Jun 16 informati 2017 8:25 [#/volume on in AM ] in source Blood data Erythrocy 4.6 - 6.2 M/mm3 Low No Jun 16 amber informati 2017 8:25 [#/volume on in AM ] in source Amniotic data fluid Erythrocy 11.5 - % Normal No Jun 16 te 17.5 informati 2017 8:25 distribut on in AM ion width source [Entitic data volume] by Automated count Leukocyte 4.8 - K/MM3 Normal No Jun 16 s 10.8 informati 2016 8:25 [#/volume on in AM ] in source Blood data Hemoglobin & Hematocrit panel in Blood Observa Value Referen Units Interpr Notes Date tion ce etation 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 Hematocri 42.0 - % Low No Jun 15 t [Volume 52.0 informati 2017 on in 11:00 PM Fraction] source of Blood data Hemoglobi 14.1 - g/dL Low No Jun 15 n 18.0 informati 2016 [Mass/vol on in 11:00 PM ume] in source Blood data Blood product special preparation [Type] Observa Value Referen Units Interpr Notes Date ti ce etation Range Blood BLOOD No No No BLOOD Jun 15 product UNIT informa informa informa UNIT # 2017 RELEASE tion in in in : W0382 8:00 PM special source source source 17 data data data [id number] prepara RELEASE tion D [Type] 7 [id number] theodore POSITIV E Blood product special preparation [Type] Observa Value Referen Units Interpr Notes Date ce etation Range Blood BLOOD No No No BLOOD Jun 15 product UNIT informa informa informa UNIT # 2017 RELEASE tion in in in : W0382 6:16 PM special source source source 17 data data data [id number] prepara RELEASE tion D [Type] 7 [id number] theodore POSITIV E Basic metabolic panel in Blood [...] Creatinin 0.70 - mg/dL Normal No Jun 15 e 1.30 informati 2017 5:40 [Mass/vol on in PM ume] in source Serum or data Plasma Creatinin 50 - 200 ML/MIN Normal No Jun 15 e renal 2016 5:40 clearance on in PM source predicted [...] - 2.0 % Normal No Jun 15 inform2016 5:40 leukocyte on in PM s in source Blood by data Automated count Eosinophi 0.0 - 0.4 K/mm3 Normal No Jun 15 ls 2016 5:40 [#/volume on in PM ] in source Blood by data Automated count Eosinophi 0.1 - % Normal No Jun 15 ls/100 12.0 2016 5:40 leukocyte on in PM s in source Blood by data Automated count Granulocy 1.3 - 8.0 K/mm3 Normal No Jun 15 amber ati 2016 5:40 [#/volume on in PM ] in source Blood by data Automated count Granulocy 37.0 - % Normal No Jun 15 amber/100 80.0 informati 2016 5:40 leukocyte on in PM s in source Blood by data Automated count Hematocri 42.0 - % Low alert Jun 15 t [Volume 52.0 2016 5:40 CRITICAL PM Fraction] RESULTS of Blood RESU L[place]: [facility] [place] 1821 Danial Boswell fernie Hemoglobi 14.1 - g/dL Low alert Jun 15 n 18.0 2016 5:40 [Mass/vol CRITICAL PM ume] in RESULTS Blood RESU LTS CALLED [place]: [facility] [place]17 1821 Danial Boswell fernie Lymphocyt 0.7 - 4.5 K/mm3 Normal [...] % Normal No Jun 15 /100 informati 2017 5:40 leukocyte on in PM s in source Blood by data Automated count Platelet 7.4 - fl Normal No Jun 15 mean 10.4 informati 2016 5:40 volume on in PM [Entitic source volume] data in Blood by Automated count Platelets 142 - 424 K/mm3 Normal No Jun 15 informati 2017 5:40 [#/volume on in PM ] in source Blood data Erythrocy 4.6 - 6.2 M/mm3 Low No Jun 15 amber informati 2017 5:40 [#/volume on in PM ] in source Amniotic data fluid Erythrocy 11.5 - % Normal No Aug 4 te 17.5 informati 2016 5:40 distribut on in PM ion width source [Entitic data volume] by Automated count Leukocyte 4.8 - K/MM3 Low No Jun 15 s 10.8 informati 2016 5:40 [#/volume on in PM ] in source Blood data Hemoglobin & Hematocrit panel in Blood Observa Value Referen Units Interpr Notes Date ti ce etation Range Hematocri 42.0 - % Low alert Jun 15 t [Volume 52.0 2016 5:40 CRITICAL PM Fraction] RESULTS of Blood RESU LTS CALLED TO: [facility] 06/15/17 1759 ElbertDanial Hemoglobi 14.1 - g/dL Low alert Jun 15 n 18.0 2016 5:40 [Mass/vol CRITICAL PM ume] in RESULTS Blood RESU LTS CALLED TO: [facility] 06/15/17 1758 ElbertDanial Blood product special preparation [Type] Observa Value Referen Units Interpr Notes Date ti ce etation Range Blood BLOOD No No No BLOOD Jun 15 product UNIT informa informa informa UNIT # 2017 RELEASE tion in tion in ti in : W0382 2:32 PM special source source source 17 data data data [id number] prepara RELEASE tion D [Type] Laurie Dickinson POSITIV E Blood product special preparation [Type] Observa Value Referen Units Interpr Notes Date ti ce etation Range Blood BLOOD No No No BLOOD Jun 15 product UNIT informa informa informa UNIT # 2017 RELEASE tion in tion in ti in : W0382 1:05 PM special source source source 17 data data data [id number] prepara RELEASE tion D [Type] Laurie Dickinson [...] tch tion in tion in tion in on in 9:00 AM [interp source source source [...] tch tion in tion in tion in on in 9:00 AM [interp source source source [...] Notes Date ti ce etation Range Blood NEGATIV NEGATIV No [...] Interpr Notes Date ti ce etation Range Hemoglo POSITIV NEG No [...] RESU LTS CALLED TO: [facility] 06/15/17 0832 ElbertDanial Hemoglobi 14.1 - g/dL Low alert Jun 15 n 18.0 2016 8:14 [Mass/vol CRITICAL AM ume] in RESULTS Blood RESU LTS CALLED TO: [facility] 08/04/17 0832 Elbert,Rich fernie Lymphocyt 0.7 - 4.5 K/mm3 Normal No Jun 15 es informati 2016 8:14 [#/volume on in AM ] in source Unspecifi data ed specimen by Automated count Lymphocyt 10 - 50 % Normal No Jun 15 es inform2016 8:14 [#/volume on in AM ] in source Unspecifi data ed specimen by Automated count Erythrocy 27 - 31.2 pg Low No Jun 15 te mean informati 2016 8:14 corpuscul on in AM ar source hemoglobi data n [Entitic mass] Erythrocy 31.8 - g/dl Low No Jun 15 te mean 35.4 informati 2016 8:14 corpuscul on in AM ar source hemoglobi data n concentra tion [Mass/vol ume] by Automated count Erythrocy 82.2 - fl Low No Jun 15 te mean 97.8 informati 2016 8:14 corpuscul on in AM ar volume source [Entitic data volume] by Automated count Monocytes 0.1 - 1.0 K/mm3 Normal No Jun 15 informati 2016 8:14 [#/volume on in AM ] in source Blood by data Automated count Monocytes 1.7 - 9.3 % Normal No Jun 15 /100 informati 2017 8:14 leukocyte on in AM s in source Blood by data Automated count Platelet 7.4 - fl Normal No Jun 15 mean 10.4 informati 2016 8:14 volume on in AM [Entitic source volume] data in Blood by Automated count Platelets 142 - 424 K/mm3 Normal No Jun 15 inform2016 8:14 [#/volume on in AM ] in source Blood data Erythrocy 4.6 - 6.2 M/mm3 Low No Jun 15 amber informati 2017 8:14 [#/volume on in AM ] in source Amniotic data fluid Erythrocy 11.5 - % High No Jun 15 te 17.5 informati 2016 8:14 distribut on in AM ion width source [Entitic data volume] by Automated count Leukocyte 4.8 - K/MM3 Normal No Jun 15 s 10.8 informati 2016 8:14 [#/volume on in AM ] in source Blood data Glucose [Mass/volume] in Capillary blood by Glucometer Observa Value Referen Units Interpr Notes Date tion ce etation Range Glucose 70 - 110 mg/dl High No Jun 15 [Mass/vol alert informati 2017 8:05 ume] in on in AM Capillary source blood by data Maricarmen r
--- OUTSIDE RECORDS SUMMARY | 2017-10-06 08:29 | External Medical Summary Rpt | CCD ---
Demographics Preferred Language Syriac Marital Status Unknown L[employer] Affiliation Unknown Race Unknown Ethnic Group Unknown Author Author , NATHANIEL PETERSON Address Unknown Phone Immunization No patient found.
--- OUTSIDE RECORDS SUMMARY | 2017-10-06 08:29 | External Medical Summary Rpt ---
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 Hematocri 42.0 - [...] source source source 17 data data data [id number] prepara RELEASE tion D [Type] 7 [id number] theodore POSITIV E Blood product special preparation [Type] Observa Value Referen Units Interpr Notes Date ce etation Range Blood BLOOD No No No BLOOD Jun 15 product UNIT informa informa informa UNIT # 2017 RELEASE tion in in in : W0382 6:16 PM special source source source 17 data data data [id number] prepara RELEASE tion D [Type] 7 [id number] [...] RESULTS of Blood RESU LTS CALLED TO: [facility] [place] 06/15/17 1821 Danial Boswell fernie Hemoglobi 14.1 - g/dL Low alert Jun 15 n 18.0 2016 5:40 [Mass/vol CRITICAL PM ume] in RESULTS Blood RESU LTS CALLED TO: [facility] [place] 06/15/17 1821 Danial Boswell fernie Lymphocyt 0.7 [...] source source source 17 data data data [id number] prepara RELEASE tion D [Type] Laurie Diciknson POSITIV E Blood product special preparation [Type] Observa Value Referen Units Interpr Notes Date ti ce etation Range Blood BLOOD No No No BLOOD Jun 15 product UNIT informa informa informa UNIT # 2017 RELEASE tion in tion in ti in : W0382 1:05 PM special source source source 17 data data data [id number] prepara RELEASE tion D [Type] Laurie Dickinson [...]
--- OUTSIDE RECORDS SUMMARY | 2017-10-06 08:29 | External Medical Summary Rpt | CCD ---
Demographics Preferred Language Yi Marital Status Unknown [employer] Affiliation Unknown Race Unknown Ethnic Group Unknown Author Author , NATHANIEL PETERSON Address Unknown Phone Immunization No patient found.
[2017-10-06 08:38] LABS: LYMPH # 1.9 K/mm3 (0.7-4.5); LYMPH % 34.4 % (10-50)
[2017-10-06] MEDS ORDERED: PANTOPRAZOLE SO40 MG PO (08:38)
[2017-10-06 08:49] LABS: HEMOGLOBIN 15.8 g/dL (14.1-18.0)
[2017-10-06 08:50] LABS: BUN 31 mg/dL (7-18)
[2017-10-06 08:55] LABS: GFR (ESTIMATED) 47 ML/MIN (>60)
[2017-10-06 09:37] VITALS: BP 139/78
== END 2017-10-06 09:38 | disposition home or self-care (01) ==
LOC: ER 08:07
PROVIDERS: Emergency Medicine
DX: I48.0 Paroxysmal atrial fibrillation (principal); I10 Essential (primary) hypertension; I25.10 Atherosclerotic heart disease of native coronary artery without angina pectoris; E78.5 Hyperlipidemia, unspecified; K21.9 Gastro-esophageal reflux disease without esophagitis; N28.9 Disorder of kidney and ureter, unspecified